=== PATIENT | female | born 1970 | race Caucasian/White ===

== ENCOUNTER 2016-10-30 11:22 | Emergency (ER) | payer MEDICAID ==
[~2016-10-30] VITALS: Ht 160 cm; Wt 54.4 kg
[2016-10-30 12:21] LABS: BASOPHIL % 0.2 % (0-2); PLATELET COUNT 280 x10^3mcL (130-400); RED CELL DISTRIBUTION WIDTH 14.4 % (11.5-14.5)
[2016-10-30 12:36] LABS: microscopic required? NO
[2016-10-30 13:06] LABS: CARBON DIOXIDE 27.6 mmol/L (21-32); CHLORIDE SERUM 105 mmol/L (98-107); POTASSIUM SERUM 4.1 mmol/L (3.5-5.1); SODIUM SERUM 141 mmol/L (136-145)
[2016-10-30 13:07] LABS: ALBUMIN 3.1 g/dL (3.4-5.0); ALKALINE PHOSPHATASE 65 U/L (46-116); ALT/SGPT 17 U/L (14-59); AST/SGOT 21 U/L (15-37); BILIRUBIN TOTAL 0.6 mg/dL (0.20-1.00); CALCIUM 8.4 mg/dL (8.5-10.1); CREATININE SERUM 0.9 mg/dL (0.6-1.0); GFR1 > 60 mL/min; GLUCOSE SERUM 96 mg/dL (74-106); TOTAL PROTEIN, SERUM 6.2 g/dL (6.4-8.2)
[2016-10-30 13:13] VITALS: BP 146/72
[2016-10-30 13:45] LABS: urine erythrocyte NEGATIVE (NEGATIVE)
[2016-11-02 13:22] LABS: RAPID PLASMA REAGIN Non Reactive (Non Reactive)
== END 2016-10-30 14:28 | disposition home or self-care (01) ==
LOC: ED 11:22
PROVIDERS: Emergency Medicine
DX: Z00.00 Encounter for general adult medical examination without abnormal findings (principal); R10.9 Unspecified abdominal pain; F41.9 Anxiety disorder, unspecified; F31.9 Bipolar disorder, unspecified

== ENCOUNTER 2017-02-24 01:49 | Emergency (ER) | payer MEDICAID | END 2017-02-24 03:22 | disposition home or self-care (01) | LOC: ED 01:49 | DX: L03.211 Cellulitis of face (principal); Z88.5 Allergy status to narcotic agent ==

== ENCOUNTER 2017-10-15 08:01 | Emergency (ER) | payer SELFPAY ==
[~2017-10-15] VITALS: Ht 160 cm; Wt 58.5 kg
[2017-10-15 08:10] VITALS: Ht 160 cm; Wt 58.5 kg
[2017-10-15 09:12] VITALS: BP 125/78
== END 2017-10-15 09:12 | disposition home or self-care (01) ==
LOC: ED 08:01
DX: L02.01 Cutaneous abscess of face (principal); Z88.5 Allergy status to narcotic agent
CPT/HCPCS: J2001

== ENCOUNTER 2017-10-18 11:39 | Emergency (ER) | payer SELFPAY ==
[~2017-10-18] VITALS: Ht 162.6 cm; Wt 58.5 kg
[2017-10-18 11:44] VITALS: BP 129/87
== END 2017-10-18 12:38 | disposition home or self-care (01) ==
LOC: ED 11:39
DX: Z48.00 Encounter for change or removal of nonsurgical wound dressing (principal); Z88.5 Allergy status to narcotic agent

== ENCOUNTER 2017-12-12 11:00 | Emergency (ER) | payer MEDICAID ==
[~2017-12-12] VITALS: Ht 162.6 cm; Wt 59.9 kg
[2017-12-12 11:09] VITALS: BP 130/89; Ht 162.6 cm; Wt 59.9 kg
== END 2017-12-12 11:53 | disposition home or self-care (01) ==
LOC: ED 11:00
DX: H92.02 Otalgia, left ear (principal); F31.9 Bipolar disorder, unspecified; Z88.5 Allergy status to narcotic agent

== ENCOUNTER 2018-01-05 13:54 | Emergency (ER) | payer MEDICAID ==
[~2018-01-05] VITALS: Ht 162.6 cm; Wt 61.2 kg
[2018-01-05 16:08] VITALS: BP 137/76
== END 2018-01-05 16:08 | disposition home or self-care (01) ==
LOC: ED 13:54
DX: H60.92 Unspecified otitis externa, left ear (principal); Z88.5 Allergy status to narcotic agent